=== PATIENT | male | born 1990 | race African-American/Black ===

== ENCOUNTER 2020-10-03 | Emergency (ER) | payer MEDICAID, OTHER ==
[~2020-10-03] VITALS: Ht 182.9 cm; Wt 73.0 kg
[~2020-10-03] MED LIST: NOVOLOG 70/30
[2020-10-03 00:46] VITALS: BP 134/81
== END 2020-10-03 00:47 | disposition home or self-care (01) ==
LOC: ER
DX: J02.9 Acute pharyngitis, unspecified (principal); F12.10 Cannabis abuse, uncomplicated
CPT/HCPCS: 99283

== ENCOUNTER 2020-10-12 18:35 | Emergency (ER) | payer OTHER ==
[~2020-10-12] VITALS: Ht 182.9 cm; Wt 73.0 kg
[2020-10-12] MEDS ORDERED: ACETAMINOPHEN 325MG TABLET PO ONE (19:15)
[2020-10-12 21:02] VITALS: BP 132/82
== END 2020-10-12 21:04 | disposition home or self-care (01) ==
LOC: ER 18:35
DX: U07.1 COVID-19 (principal); R07.89 Other chest pain; M79.10 Myalgia, unspecified site; F12.10 Cannabis abuse, uncomplicated; E10.9 Type 1 diabetes mellitus without complications; Z79.4 Long term (current) use of insulin
CPT/HCPCS: 71045; 93005; 99285; C9803; U0003